=== PATIENT | male | born 1985 | race Caucasian/White ===

== ENCOUNTER 2024-07-27 22:22 | Emergency (ER) | payer BC, SELFPAY ==
[2024-07-27 22:27] VITALS: BP 166/106
[2024-07-27 23:22] VITALS: BMI 29.4
--- NOTE | 2024-07-27 23:23 | ED.GENMED ---
History of Present Illness
General
Chief Complaint: Chest Pain
Source: patient
Exam Limitations: none
Time Seen by Provider: 07/27/24 23:14
History of Present Illness
History of Present Illness:
This is a 38 year old male that comes in with c/o feeling jittery and fells like her heart is pounding. States that he was out and had 2 beer and he just did not feel right. States that he felt like he had drank 100 cups of coffee and his chest was
pounding. States that he did see his PCP about 2-3 weeks ago and his BP was slightly elevated but was not started on any medication. Denies any fever, chills, SOB, abd pain, nausea, vomiting, diarrhea, headache, dizziness, urinary burning.
Past History
Past History
ED Past Medical History: Asthma (as child but out grow), HTN (Slightly elevated in PCP office but no medications) and Other (Hypoglycemia); Negative Hypercholesterolemia
ED Past Surgical History: None
Social History
Tobacco: Non-smoker
Alcohol: Occasional
Drug: Marijuana
Personal: Single
Living: alone
Review of Systems
Review of Systems
All Other Systems: ROS reviewed and negative except as documented in HPI and ROS
Constitutional: Reports no symptoms; Denies fever or chills
EENT: Reports no symptoms
Respiratory: Denies cough or trouble breathing
Cardiac: Reports chest pain
ABD/GI: Reports no symptoms; Denies abdominal pain, nausea, vomiting or diarrhea
: Reports no symptoms; Denies dysuria, frequency or urgency
Musculoskeletal: Reports no symptoms
Skin: Reports no symptoms
Neurological: Reports no symptoms; Denies dizzy or headache
Psychiatric: Reports no symptoms
Phy Exam
General Physical Exam
General Presentation: well appearing and no apparent distress
General age: appears stated age
General Skin: warm and dry
General Habitus: normal
General Mental: anxious
General Hydration: appears well hydrated
ENT Exam
ENT Exam: TM's normal, pharynx normal and neck supple
Eye Exam
Eye Exam: EOMI
Cardiovascular Exam
Cardiovascular Exam: regular rate/rhythm, no edema, no murmur and normal peripheral pulses
Pulmonary Exam
Pulmonary Exam: lungs clear, no respiratory distress, no rales, chest non tender, no crackles, no rhonchi, no wheezing and no cough
Gastrointestinal Exam
Gastrointestinal Exam: normal bowel sounds, non tender, soft, no organomegaly, no pulsatile mass and non distended
Musculoskeletal Exam
Musculoskeletal Exam: full ROM and no edema
Skin Exam
Skin Exam: normal color, warm/dry, no rash and no petechia
Psychiatric Exam
Psychiatric Exam: normal mood/affect
Scores
Heart Score for Chest Pain Patients
STEMI patient?: No
History: Slightly or Non-Suspicious
ECG: Normal
Age: </= 45 years
Risk Factors: No Risk Factors
Troponin: </= Normal Limit
Heart Score for Chest Pain Patients: 0
Heart Score Risk: 2.5% MACE over next 6 weeks
Course
Orders/Labs/Results
Orders:
Orders
07/27/24 22:23
Electrocardiogram (*1) Urgent
Reason for Study: Chest Pain
EKG- Treatment ONCE
07/27/24 23:22
Pantoprazole [Protonix IV] 40 mg IV NOW STA
07/27/24 23:30
Complete Blood Count/With Diff Urgent
Comprehensive Metabolic Panel Urgent
TSH Reflex To Free T4 Urgent
Troponin I Urgent
07/27/24 23:33
D-Dimer Urgent
07/28/24 00:00
CR Chest - 2 Views Urgent
Reason For Exam: Chest pain
07/28/24 00:32
Electrocardiogram (*1) Urgent
Reason for Study: Chest Pain
Other Reason for Exam: Repeat with Troponin
EKG- Treatment ONCE
07/28/24 02:08
Troponin I Urgent
Abnormal Lab Results
07/27/24
23:30
MPV 10.8 H fL
(7.4-10.4)
ALT 87 H U/L
(0-50)
Albumin 5.3 H g/dl
(3.5-5.0)
07/27/24 23:30
07/27/24 23:30
ALT elevation. Albumin very slightly elevated. D-dimer 0.43, Troponin <0.012
second Troponin <0.012
Vital Signs
Initial and Last Documented VS:
Initial Vital Signs
Temp Pulse Resp BP Pulse Ox
97.7 F 95 16 166/106 99
07/27/24 22:27 07/27/24 22:27 07/27/24 22:27 07/27/24 22:27 07/27/24 22:27
Last Documented Vital Signs
Temp Pulse Resp BP Pulse Ox
97.7 F 86 16 113/89 97
07/27/24 22:27 07/28/24 02:00 07/28/24 02:00 07/28/24 02:00 07/28/24 02:00
MDM/Problems Addressed
Differential Diagnosis Includes:
Anxiety, coronary syndrome
MDM/Problems Addressed:
This is a 38 year old male that comes in with c/o feeling like his heart was pounding and he drank 100 cups of coffee.
Will check labs and give Protonix. chest x-ray
back into see patient. States that he is feeling better. Explained that his chest x-ray is normal along with his D-dimer and Troponin. States that he did have chest heaviness with the pounding. Will get second Troponin. If all normal will discharge
patient home.
Repeat ECGL rate 77, NSR, Normal axis. Normal QRS, negative for ischemia. Checked by Dr. Negro
Chronic conditions affecting care:
NA
Acute Exacerbation and/or Progression of Chronic Illness:
NA
*Radiology
Radiology exam reviewed: preliminary read by ED provider (Chest- negative for active disease)
*EKG
Interpreted by ED Provider?: Yes
Heart Rate: 92
Rate: normal
Rhythm: sinus
[place]: normal axis
Interval: normal interval
QRS Pattern: normal QRS
Ischemia: no ischemia
*Plate Sensitizer Interpretation
Rate: normal
Heart Rate: 90
Rhythm: sinus
*Critical Care Note
Total Time (30-74mins, 75-104mins- exclusive of procedures): Not Applicable
ED Attending Note
-
Portions of this chart may have been created with voice recognition software.� Occasional wrong word or��sound alike� substitutions may have occurred due to the inherent limitations of voice recognition software.
Discharge Plan
Departure
Patient Disposition: Home (Routine Discharge)
Date of Disposition: 07/28/24
Time of Disposition: 02:57
Patient with high blood pressure during this ER visit?: No
Condition: Good
Covid-19: Not Applicable
Discharge Problem:
Chest pain
Instructions: Anxiety, Adult ED, Chest Pain PCP Follow Up
Referrals:
Lopez Shaw, DO [Family Provider] - Follow up in 2-3 days
Activity Restrictions/Additional Instructions:
As discussed, your blood work shows that your ALT which is one of the liver enzymes is elevated. Otherwise your blood work is normal. Your ECG is normal along with both Troponin and your chest x-ray. There may be some anxiety related to your chest
feeling or pounding. Please increase your water intake to 8-8oz glasses daily. Follow up with the family doctor for recheck. IF YOU HAVE ANY OTHER CONCERNS PLEASE RETURN TO THE EMERGENCY ROOM.
Interventions
Interventions:
*General Assessment Last Done: 07/27/24 22:26
*Neglect/Abuse Screening Last Done: 07/27/24 22:26
*ED COVID-19 Vaccine History Last Done: 07/27/24 22:26
ED- Cardiac Assessment Last Done: 07/27/24 23:32
Discharge Date and Time
Print Language: [id number]
[2024-07-27 23:31] VITALS: BP 135/95
[2024-07-27] MEDS: PROTONIX IV 40 MG IV (23:40)
[2024-07-28] VITALS: BP 128/93
[2024-07-28] LABS: % Basophils 0.8 % (0-2); % Eosinophils 1.2 % (0-6); % Immature Granulocytes 0.5 % (0-0.5); % Lymphocytes 35.5 % (20.5-51.1); % Monocytes 7.8 % (1.7-9.3); % Neutrophils 54.2 % (42.2-75.2); Absolute Basophils 0.1 10^3/uL (0-0.2); Absolute Eosinophils 0.1 10^3/uL (0-0.7); Absolute Lymphocytes 2.2 10^3/uL (1.2-3.4); Absolute Monocytes 0.5 10^3/uL (0.1-0.6); Absolute Neutrophils 3.3 10^3/uL (1.4-6.5); Hematocrit 44.3 % (39.0-52.0); Hemoglobin 15.6 g/dL (13.0-18.0); Mean Corp Hgb Conc. 35.2 g/dL (33.0-37.0); Mean Corpuscular Volume 88.1 fL (80.0-94.0); Mean Platelet Volume 10.8 fL (7.4-10.4); Nucleated Red Blood Cells % 0 % (-); Platelet Count 223 10^3/uL (130-400); Red Blood Cell Count 5.03 10^6/uL (4.70-6.10); Red Cell Dist. Width 11.9 % (11.5-14.5); White Blood Cell Count 6.1 10^3/uL (4.8-10.8)
[2024-07-28 00:04] LABS: ALT (SGPT) 87 U/L (0-50); AST (SGOT) 42 U/L (17-59); Albumin 5.3 g/dl (3.5-5.0); Alkaline Phosphatase 56 U/L (38-126); Blood Urea Nitrogen 15 mg/dl (9-20); Calcium 9.9 mg/dl (8.4-10.2); Carbon Dioxide 24 mmol/L (22-30); Chloride 102 mmol/L (98-107); Estimated Creatinine Clearance 107 ml/min; Glucose 97 mg/dl (70-99); Potassium 3.8 mmol/L (3.5-5.1); Sodium 140 mmol/L (135-145); Total Bilirubin 0.5 mg/dl (0.2-1.3); Total Protein 7.6 g/dl (6.3-8.2); eGFR > 60.00
[2024-07-28 00:11] LABS: D-Dimer 0.43 ug/mlFEU (0.00-0.50)
[2024-07-28 00:25] LABS: Troponin I < 0.012 ng/ml
[2024-07-28 00:48] LABS: TSH Reflex To Free T4 2.52 uIU/ml (0.47-4.68)
[2024-07-28 01:09] VITALS: BP 132/96
[2024-07-28 02:00] VITALS: BP 113/89
[2024-07-28 02:52] LABS: Troponin I < 0.012 ng/ml
[2024-07-28 02:57] VITALS: BP 126/90
== END 2024-07-28 03:05 | disposition home or self-care (01) ==
LOC: EMR 22:22
PROVIDERS: Clinical Nurse Specialist Family Health; EMERGENCY PHYSICIAN Emergency Medicine; FAMILY PHYSICIAN Family Medicine
DX: R07.89 Other chest pain (principal)
CPT/HCPCS: 99285; 96374; 71046; 80053; 84443; 84484; 85025; 85379; 93005